=== PATIENT | female | born 1995 | race Caucasian/White ===

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

== ENCOUNTER 2017-03-22 00:06 | Emergency (ER) | payer MEDICAID ==
[~2017-03-22] VITALS: Ht 160 cm; Wt 67.3 kg
[~2017-03-22 00:06] MED LIST changes: -MACR100C2 PO; +SELE2.5%T TOPICAL
[2017-03-22 00:12] VITALS: BP 111/67; PULSE 148; RESP 20; TEMP 101.3
[2017-03-22] MEDS ORDERED: TYLE325T PO (00:27)
[2017-03-22 00:37] VITALS: BP 111/67; PULSE 148; RESP 20; TEMP 101.3; O2SAT 97
[2017-03-22] MEDS ORDERED: ZOFR4TAB PO (20:31)
== END 2017-03-22 01:13 | disposition left against medical advice (07) ==
LOC: PHED 00:06
DX: Z53.21 Procedure and treatment not carried out due to patient leaving prior to being seen by health care provider (principal)
CPT/HCPCS: 99281

== ENCOUNTER 2017-03-22 18:43 | Emergency (ER) | payer MEDICAID ==
[~2017-03-22] VITALS: Ht 160 cm; Wt 67.0 kg
[~2017-03-22 18:43] MED LIST changes: +TYLE325T PO
[2017-03-22 18:47] VITALS: BP 107/73; PULSE 112; RESP 16; TEMP 97.9; O2SAT 98
[2017-03-22] MEDS ORDERED: ONDANSETRON ODT 4 MG TAB PO ONE (19:30)
--- NOTE | 2017-03-22 19:35 | PD ---
HPI Chief Complaint: Cold / Flu Symptoms Time Seen by Provider: 18:53 Travel History International Travel<30 days: No Contact w/Intl Traveler<30days: No Traveled to known affect area: No History of Present Illness HPI 21-year-old female presents to the emergency room for evaluation of headache, fever, chills, cough, congestion, sore throat, body aches, nausea, and vomiting for the past 3 days. Maximum temperature at home was 103. She has been taking [id number] medications without significant relief in symptoms. Sore throat is not severe. States she has vomited several times and not been able to keep anything down. No chronic medical conditions or daily medications. PFSH Past Medical History Medical History: Denies Significant Hx Diminished Hearing: No Respiratory: Yes (ASTHMA) Tetanus Vaccination: < 5 Years Influenza Vaccination: No ?: Unknown LMP: WEEK AGO ( UNUSALY LIGHT ) : 2 Para: 1 Miscarriage: 1 Past Surgical History Surgical History: No Previous Surgery Section: Yes Other Surgery: Yes () Social History Alcohol Use: No Tobacco Use: No Substance Use: No Allergies-Medications (Allergen,Severity, Reaction): Coded Allergies: No Known Allergies (Unverified Adverse Reaction, Unknown, 03/22/17) Reported Meds & Prescriptions Reported Meds & Active Scripts Active Reported Tylenol (Acetaminophen) 325 Mg Tab 650 Mg PO Q6H PRN Review of Systems Except as stated in HPI: all other systems reviewed are Neg Physical Exam Narrative GENERAL: Well-nourished, well-developed female no acute distress. Afebrile. Ambulatory. SKIN: Focused skin assessment warm/dry. HEAD: Normocephalic. EYES: No scleral icterus. No injection or drainage. NECK: Supple, trachea midline. No JVD or lymphadenopathy. ENT: Mucosa pink and moist. No erythema or exudates. No uvular edema. No uvular , palatal, or tonsillar deviation. Airway patent. Nasal turbinates appear normal without nasal blood, purulent drainage or septal hematoma. EARS: Bilateral pinnae and external canals appear within normal limits. Bilateral tympanic membranes without erythema, dullness or perforation. CARDIOVASCULAR: Regular rate and rhythm without murmurs, gallops, or rubs. RESPIRATORY: Breath sounds equal bilaterally. No accessory muscle use. No crackles, rales, wheezes, or rhonchi. GASTROINTESTINAL: Abdomen soft, non-tender, nondistended. Data Data Last Documented VS Vital Signs Date Time Temp Pulse Resp B/P (MAP) Pulse Ox O2 Delivery O2 Flow Rate FiO2 03/22/17 18:47 97.9 112 16 107/73 (84) 98 Orders Orders Ed Urine Pregnancytest Poc (03/22/17 19:20) Urinalysis - C+S If Indicated (03/22/17 19:20) Ondansetron Odt (Zofran Odt) (03/22/17 19:30) Influenzae A/B Antigen (03/22/17 19:20) Group A Rapid Strep Screen (03/22/17:20) Strep Culture (Group A) (03/22/17 19:20) Labs Laboratory Tests Test 03/22/17 Urine Color YELLOW Urine Turbidity CLEAR Urine pH 5.5 Urine Specific [place] 1.035 Urine Protein TRACE mg/dL Urine Glucose (UA) NEG mg/dL Urine Ketones NEG mg/dL Urine Occult Blood LARGE Urine Nitrite NEG Urine Bilirubin NEG Urine Leukocyte Esterase NEG Urine RBC 20-24 /hpf Urine WBC 3-5 /hpf Urine Squamous Epithelial Cells 6-8 /hpf Urine Bacteria NONE /hpf Microscopic Urinalysis Comment CULT NOT INDICATED MDM Medical Decision Making Medical Screen Exam Complete: Yes Emergency Medical Condition: Yes Medical Record Reviewed: Yes Differential Diagnosis Influenza, gastroenteritis, pneumonia, upper respiratory infection Narrative Course 21-year-old female presents to the emergency room for evaluation of cold and flu symptoms for the past 3 days. Patient is afebrile and well-appearing in the emergency room. Vital signs stable. Physical exam is unremarkable. She has mild erythema of the pharynx. Lung sounds clear and equal bilaterally. Rapid influenza and strep are negative. UA shows mild to moderate blood patient is currently menstruating. test is negative. She was offered labs but refused stating she knows she is not dehydrated. She was given Zofran and drink a whole bottle of Gatorade without difficulty. This is viral syndrome. Patient discharged with prescription for Zofran and told to follow-up with primary care physician or return for worsening symptoms. She understands and agrees the plan. Diagnosis Primary Impression: Viral syndrome Referrals: Primary Care Physician Additional Instructions: Rest and drink plenty of fluids. Take ibuprofen with food as directed, as needed for pain. Zofran as directed, as needed for nausea. Follow-up with a primary care physician. Return to the emergency room for worsening symptoms. Med/Other Pt SpecificInfo: Prescription(s) given Disposition: 01 DISCHARGE HOME Condition: Stable Bianca Rivas Mar 22, 2017 19:35
[2017-03-22 19:38] LABS: BILIRUBIN, URINE NEG (NEG); BLOOD, URINE LARGE (NEG); GLUCOSE,URINE NEG (NEG); KETONE, URINE NEG (NEG); NITRITE,URINE NEG (NEG); PH, URINE 5.5 (5.0-8.5); URINE LEUKOCYTE ESTERASE NEG (NEG)
[2017-03-22 19:48] LABS: URINE COLOR YELLOW (YELLW/STRAW)
[2017-03-22 20:27] VITALS: BP 110/64
[2017-03-22] MEDS ORDERED: ZOFR4TAB PO (20:31)
== END 2017-03-22 20:35 | disposition home or self-care (01) ==
LOC: PHEFT 18:43
DX: B34.9 Viral infection, unspecified (principal); J45.909 Unspecified asthma, uncomplicated
CPT/HCPCS: 81001; 84703; 87081; 87804; 87880; 99283

== ENCOUNTER 2017-05-08 18:13 | Emergency (ER) | payer MEDICAID ==
[~2017-05-08] VITALS: Ht 162.6 cm; Wt 72.4 kg
[~2017-05-08 18:13] MED LIST changes: -SELE2.5%T TOPICAL; +ZOFR4TAB PO
[2017-05-08 18:16] VITALS: BP 112/65; PULSE 100; RESP 18; TEMP 99.5; O2SAT 99
[2017-05-08] MEDS ORDERED: ACETAMINOPHEN 500 MG CPLT PO ONE (18:30)
--- NOTE | 2017-05-08 18:59 | PD ---
HPI Chief Complaint: Cold / Flu Symptoms Time Seen by Provider: 18:51 Travel History International Travel<30 days: No Contact w/Intl Traveler<30days: No Traveled to known affect area: No History of Present Illness HPI 22-year-old female presents to the ED for evaluation of approximate 24 hour history of headache, sinus congestion, rhinorrhea, body aches, sore throat, nonproductive cough, nausea. She endorses one episode of vomiting. Gradual onset. Patient endorses fever and chills. She did not receive this years flu vaccine. She denies sick contacts. No treatment attempted at home. PFSH Past Medical History Asthma: Yes (by hx) Diminished Hearing: No Respiratory: Yes (ASTHMA) Tetanus Vaccination: < 5 Years ?: Unknown LMP: 03/2017 : 2 Para: 1 Miscarriage: 1 Past Surgical History Section: Yes Other Surgery: Yes () Social History Alcohol Use: No Tobacco Use: No Substance Use: No Allergies-Medications (Allergen,Severity, Reaction): Coded Allergies: No Known Allergies (Unverified Adverse Reaction, Unknown, 05/08/17) Reported Meds & Prescriptions Reported Meds & Active Scripts Active Zofran Odt (Ondansetron Odt) 4 Mg Tab 4 Mg SL Q8HR PRN Tamiflu (Oseltamivir Phosphate) 75 Mg Cap 75 Mg PO BID 5 Days Review of Systems Except as stated in HPI: all other systems reviewed are Neg Physical Exam Narrative GENERAL: Well-nourished, well-developed ill-appearing white female in no acute distress. SKIN: Warm and dry. HEAD: Normocephalic. Atraumatic. EYES: No scleral icterus. No injection or drainage. PERRLA. EOMI. ENT: Pearly grullon tympanic membranes bilaterally. Nasal mucosa is moist. Oropharynx without erythema, edema or exudate. NECK: Supple, trachea midline. No JVD or lymphadenopathy. CARDIOVASCULAR: Regular rate and rhythm without murmurs, gallops, or rubs. RESPIRATORY: Breath sounds clear and equal bilaterally. No accessory muscle use. GASTROINTESTINAL: Abdomen soft, non-tender, nondistended. + Bowel sounds MUSCULOSKELETAL: No cyanosis, or edema. BACK: Nontender without obvious deformity. No CVA tenderness. Data Data Last Documented VS Vital Signs Date Time Temp Pulse Resp B/P (MAP) Pulse Ox O2 Delivery O2 Flow Rate FiO2 05/08/17 18:16 99.5 100 18 112/65 (81) 99 Orders Orders Influenzae A/B Antigen (05/08/17 18:24) Ed Urine Pregnancytest Poc (05/08/17 18:25) Acetaminophen (Tylenol) (05/08/17 18:30) Ondansetron Odt (Zofran Odt) (05/08/17 19:15) MDM Medical Decision Making Medical Screen Exam Complete: Yes Emergency Medical Condition: Yes Differential Diagnosis Influenza versus viral syndrome versus versus other Narrative Course 22-year-old female presents to the ED for evaluation of 48 hour history of cold and flu symptoms. Temp 99.5 on presentation. On exam this is an ill-appearing white female no acute distress. ENT exam is unremarkable. Chest CTAP. Abdomen soft and nontender. Bedside urine test negative. Rapid flu swab positive for flu B. Patient was administered 500 mg Tylenol and 4 mg Zofran in the ED. Patient's prescribed Tamiflu, Zofran. She is instructed to continue with symptomatic treatment, return to the ED for worsening symptoms, otherwise follow with the primary care provider. She was provided with a work note. She is stable and discharged home. Diagnosis Primary Impression: Influenza B Referrals: Primary Care Physician Departure Forms: Tests/Procedures, Work Release Enter return to work date: May 14, 2017 Additional Instructions: Rest, hydrate. Push fluids such as sports drinks, Pedialyte, popsicles, clear broth. Take Tamiflu as prescribed. Dissolve Zofran under the tongue every 8 hours as needed for nausea. Continue with symptomatic treatment with OTC medications. Alternating Motrin and Tylenol every 4-6 hours as needed for continued fever. Medication such as Mucinex D will help to decrease sinus congestion and ear pain. Increase handwashing frequently to avoid the spread of the virus to other family members and the community. Disinfect commonly touched surfaces such as light switches, microwaves, remote controls. Replace toothbrush at the end of this illness. Follow-up with the primary care provider this week. Return to the ED for any urgent or emergent medical condition. Med/Other Pt SpecificInfo: Prescription(s) given Scripts Ondansetron Odt (Zofran Odt) 4 Mg Tab 4 MG SL Q8HR Y for Nausea/Vomiting, #6 TAB 0 Refills Prov: Soontharothai,Rewadee MD 05/08/17 Oseltamivir (Tamiflu) 75 Mg Cap 75 MG PO BID for Mgmt Viral Infection for 5 Days, #10 CAP 0 Refills Prov: Chuck Nguyễn MD 05/08/17 Disposition: 01 DISCHARGE HOME Condition: Stable Luna Corbin May 08, 2017 18:59
[2017-05-08] MEDS ORDERED: ZOFR4TAB3 SL (19:02)
[2017-05-08] MEDS ORDERED: OSEL75 PO (19:02)
[2017-05-08] MEDS ORDERED: ONDANSETRON ODT 4 MG TAB PO ONE (19:15)
== END 2017-05-08 19:31 | disposition home or self-care (01) ==
LOC: PHEFT 18:13
DX: J10.1 Influenza due to other identified influenza virus with other respiratory manifestations (principal); R51 Headache; J45.909 Unspecified asthma, uncomplicated
CPT/HCPCS: 84703; 87804; 99283